=== PATIENT | female | born 1985 | race Caucasian/White ===

== ENCOUNTER 2017-07-21 08:00 | Observation (INO) | payer MEDICAID, OTHER ==
[~2017-07-21] VITALS: Ht 157.5 cm; Wt 62.6 kg
[2017-07-21] MEDS ORDERED: LIDOCAINE HCL/PF 1% 10 MG/ML 5ML VIAL ONE (08:25)
[2017-07-21] MEDS ORDERED: PNV1TABL76 MT (08:40)
[2017-07-21] MEDS ORDERED: HEMORRHOIDAL SUPP PR PRN (09:00)
[2017-07-21] MEDS ORDERED: TETANUS, DIPHTHERIA, PERTUSSIS VAC/PF 0.5ML (>7YR OLD) IM ONE (09:00)
[2017-07-21] MEDS ORDERED: BENZOCAINE/LANOLIN/ALOE VERA SPRAY TOP PRN (09:00)
[2017-07-21] MEDS ORDERED: RHO(D) IMMUNE GLOBULIN 300 MCG/SYR IM PRN (09:00)
[2017-07-21] MEDS ORDERED: DIPHENHYDRAMINE 25MG CAPSULE PO PRN (09:00)
[2017-07-21] MEDS ORDERED: ACETAMINOPHEN WITH CODEINE 300/30MG TABLET PO PRN (09:00)
[2017-07-21] MEDS ORDERED: INFLUENZA VIRUS VACCINE 0.5ML SYR IM ONE (09:00)
[2017-07-21] MEDS ORDERED: LANOLIN OINT 0.25 GM TUBE TOP PRN (09:00)
[2017-07-21] MEDS ORDERED: GLYCERIN/WITCH HAZEL LEAF MEDICATED PAD TOP PRN (09:00)
[2017-07-21] MEDS: DEXT 5%/LR + PITOCIN 20UNITS/L 1,000 ML IV SCH ×2 (09:10→09:22)
[2017-07-21 10:58] LABS: BASOPHILS % 0.4 % (0.0-2.0); EOSINOPHILS % 0.4 % (0.0-5.0); HEMATOCRIT. 39.1 % (36.0-48.0); HEMOGLOBIN. 12.6 g/dL (12.0-16.0); LYMPHOCYTES % 8.3 % (20.0-50.0); MEAN CORPUSCULAR HEMOGLOBIN 26.7 pg (28.0-32.0); MEAN CORPUSCULAR VOLUME 82.8 fL (81.0-99.0); MEAN PLATELET VOLUME 10.3 fl (7.4-10.4); MONOCYTES % 4.5 % (2.0-8.0); NEUTROPHILS % 86.4 % (40.0-76.0); PLATELET 282 x1000/uL (130-400); RED BLOOD CELL COUNT 4.72 mill/uL (4.2-5.4); RED CELL DISTRIBUTION WIDTH 15.3 % (11.6-14.6)
[2017-07-21 11:00] VITALS: BP 107/77
[2017-07-21] MEDS: IBUPROFEN 400MG TABLET PO PRN (11:08)
[2017-07-21 11:09] LABS: CLARITY URINE CLEAR (CLEAR); COLOR URINE DARK YELLOW (YELLOW); KETONES URINE TRACE (NEGATIVE); LEUKOCYTE ESTERASE URINE TRACE (NEGATIVE); NITRITE URINE NEGATIVE (NEGATIVE); OCCULT BLOOD URINE NEGATIVE (NEGATIVE); PH URINE 6.5 (4.5-8.0); PROTEIN URINE TRACE (NEGATIVE); SPECIFIC GRAVITY URINE 1.026 (1.005-1.030)
[2017-07-21 11:30] VITALS: BP 115/71
[2017-07-21 12:26] LABS: RUBELLA IGG 406.8 IU/mL (4.99-10)
[2017-07-21 12:27] LABS: HEPATITIS B SURFACE ANTIGEN NEGATIVE
[2017-07-21 12:44] LABS: *AMPHETAMINES SCREEN URINE NEGATIVE (NEGATIVE); *BARBITURATES SCREEN URINE NEGATIVE (NEGATIVE); *BENZODIAZEPINES SCREEN URINE NEGATIVE (NEGATIVE); *COCAINE SCREEN URINE NEGATIVE (NEGATIVE); CANNABINOID URINE SCREEN NEGATIVE (NEGATIVE); METHADONE URINE SCREEN NEGATIVE (NEGATIVE); OPIATES URINE SCREEN NEGATIVE (NEGATIVE); PHENCYCLIDINE URINE SCREEN NEGATIVE (NEGATIVE)
[2017-07-21 12:46] LABS: INR 0.9; PARTIAL THROMBOPLASTIN TIME 24.4 sec (23.4-31.0); PROTHROMBIN TIME 9.9 sec (9.4-11.6)
[2017-07-21] MEDS ORDERED: LIDOCAINE HCL/PF 1% 10 MG/ML 5ML VIAL IJ ONE (13:00)
[2017-07-21] MEDS: SIMETHICONE 80MG TABLET CHEW PO SCH ×4 (14:32→22:48)
[2017-07-21] MEDS: PRENATAL VIT/FE FUMARATE/FA TABLET PO SCH (14:32)
[2017-07-21] MEDS: ACETAMINOPHEN WITH CODEINE 300/30MG TABLET PO PRN ×2 (14:34→22:40)
[2017-07-21] MEDS ORDERED: DOCUSATE SODIUM 100MG CAPSULE PO SCH (21:00)
[2017-07-21 21:25] VITALS: BP 106/59
[2017-07-22 06:30] VITALS: BP 95/55
[2017-07-22 07:53] VITALS: BP 121/64
[2017-07-22] MEDS: PRENATAL VIT/FE FUMARATE/FA TABLET PO SCH (09:02)
[2017-07-22] MEDS: IBUPROFEN 400MG TABLET PO PRN ×2 (09:02→17:51)
[2017-07-22] MEDS: SIMETHICONE 80MG TABLET CHEW PO SCH ×4 (09:03→20:52)
[2017-07-22] MEDS: FERROUS SULFATE 325MG TABLET PO SCH ×2 (13:10→17:51)
[2017-07-22] MEDS ORDERED: INFLUENZA VIRUS VACCINE 0.5ML SYR IM ONE (16:00)
[2017-07-22 16:04] VITALS: BP 97/50
[2017-07-22 22:00] VITALS: BP 104/66
[2017-07-23] MEDS ORDERED: TETANUS, DIPHTHERIA, PERTUSSIS VAC/PF 0.5ML (>7YR OLD) IM ONE (07:00)
[2017-07-23 07:45] VITALS: BP 106/61
[2017-07-23] MEDS: IBUPROFEN 400MG TABLET PO PRN (08:38)
[2017-07-23] MEDS: SIMETHICONE 80MG TABLET CHEW PO SCH (08:38)
[2017-07-23] MEDS: PRENATAL VIT/FE FUMARATE/FA TABLET PO SCH (08:38)
== END 2017-07-23 12:10 | disposition home or self-care (01) ==
LOC: L&D 08:00 → 7EST PP/OB 10:28
PROVIDERS: ADMIT Specialist; ATTEND Specialist
DX: O60.03 Preterm labor without delivery, third trimester (principal); O24.429 Gestational diabetes mellitus in childbirth, unspecified control; Z3A.33 33 weeks gestation of pregnancy
CPT/HCPCS: 36415; 80305; 81003; 85025; 85610; 85730; 86592; 86703; 86762; 86850; 86900; 86901; 87340; 90471; 90715; 96365; 96366; G0378; J3490; J2590

== ENCOUNTER 2022-12-31 08:08 | Emergency (ER) | payer MEDICAID, MEDICARE, OTHER ==
[~2022-12-31] VITALS: Ht 160 cm; Wt 61.0 kg
[2022-12-31 09:11] LABS: CHLORIDE 111 mEq/L (98-107); INDEX HEMOLYSI 1 (1-3); INDEX ICTERIC 1 (1-4); INDEX LIPEMIC 1 (1-3); POTASSIUM 4.2 mEq/L (3.5-5.1); SODIUM 139 mEq/L (136-145)
[2022-12-31 09:13] LABS: BASOPHILS % 0.5 % (0.0-2.0); DIFFERENTIAL COMMENT 0; EOSINOPHILS % 2.9 % (0.0-5.0); HEMATOCRIT. 39.1 % (36.0-48.0); HEMOGLOBIN. 12.8 g/dL (12.0-16.0); LYMPHOCYTES % 16.9 % (20.0-50.0); MEAN CORPUSCULAR HEMOGLOBIN 25.6 pg (28.0-32.0); MEAN CORPUSCULAR HGB CONC 32.8 g/dL (31.0-37.0); MEAN PLATELET VOLUME 8.2 fl (7.4-10.4); MONOCYTES % 6.3 % (2.0-8.0); NEUTROPHILS % 73.4 % (40.0-76.0); PLATELET 327 x1000/uL (130-400); RED BLOOD CELL COUNT 5.01 mill/uL (4.2-5.4); RED CELL DISTRIBUTION WIDTH 15.2 % (11.6-14.6); WHITE BLOOD COUNT 9.5 x1000/uL (4.5-11.0)
[2022-12-31 09:18] LABS: ALANINE AMINOTRANSFERASE 27 IU/L (13-61); ALBUMIN 3.6 g/dL (3.4-5.0); ASPARTATE AMINOTRANSFERASE 11 IU/L (15-37); BILIRUBIN TOTAL 0.3 mg/dL (0.1-1.0); CALCIUM 8.7 mg/dL (8.5-10.1); CARBON DIOXIDE 22 mEq/L (21-32); CREATININE 0.8 mg/dL (0.6-1.3); GLUCOSE 109 mg/dL (70-105); PROTEIN TOTAL 7.9 g/dL (6.0-8.3); UREA NITROGEN BLOOD 7 mg/dL (7-21)
[2022-12-31 09:42] LABS: HCG SCREEN NEGATIVE
[2022-12-31 09:49] LABS: CLARITY URINE CLEAR (CLEAR); COLOR URINE YELLOW (YELLOW); GLUCOSE URINE NEGATIVE (NEGATIVE); KETONES URINE NEGATIVE (NEGATIVE); LEUKOCYTE ESTERASE URINE NEGATIVE (NEGATIVE); NITRITE URINE NEGATIVE (NEGATIVE); OCCULT BLOOD URINE NEGATIVE (NEGATIVE); PH URINE 6.5 (4.5-8.0); PROTEIN URINE NEGATIVE (NEGATIVE); SPECIFIC GRAVITY URINE 1.011 (1.005-1.030); UROBILINOGEN URINE 0.2 E.U./dL (0.2-1.0)
[2022-12-31] MEDS ORDERED: OMEP40CA20 MT (13:54)
[2022-12-31] MEDS ORDERED: MAGNESIUM/ALUMINUM HYDROXIDE/SIMETHICONE 30ML UDC PO ONE (14:00)
[2022-12-31 14:20] VITALS: PULSE 92; RESP 20; O2SAT 100
[2022-12-31 14:33] VITALS: BP 136/84; PULSE 92; RESP 20; TEMP 98.2
== END 2022-12-31 14:34 | disposition home or self-care (01) ==
LOC: ER 08:08
DX: R10.33 Periumbilical pain (principal)
CPT/HCPCS: 36415; 74176; 80053; 81003; 81025; 84703; 85025; 99284

== ENCOUNTER 2024-11-29 16:21 | Emergency (ER) | payer SELFPAY ==
[~2024-11-29] VITALS: Ht 154.9 cm; Wt 73.0 kg
[~2024-11-29 16:21] MED LIST: OMEP40CA20 MT
[2024-11-29 16:50] VITALS: TEMP 36.7; O2SAT 100
[2024-11-29] MEDS: FLUORESCEIN SODIUM 1MG/STRIP EACHEYE ONE (21:00)
[2024-11-29] MEDS: TETRACAINE 0.5% OPHTH DROPS 4ML EACHEYE ONE (21:00)
[2024-11-29] MEDS: ACETAMINOPHEN 325MG TABLET PO ONE (21:20)
[2024-11-29] MEDS ORDERED: DEXT15DR5 EACHEYE (22:28)
[2024-11-29] MEDS ORDERED: PYRI25TA4 MT (22:28)
[2024-11-29] MEDS ORDERED: ACET-2708 MT (22:28)
[2024-11-29 23:16] VITALS: BP 116/68; PULSE 79; RESP 18; O2SAT 100
== END 2024-11-29 23:17 | disposition home or self-care (01) ==
LOC: ER 16:21
DX: O99.891 Other specified diseases and conditions complicating pregnancy (principal); O21.0 Mild hyperemesis gravidarum; Z3A.14 14 weeks gestation of pregnancy; Z79.899 Other long term (current) drug therapy
CPT/HCPCS: 99283